=== PATIENT | female | born 1980 | race Caucasian/White ===

== ENCOUNTER → 2016-05-23 | Outpatient (CLI) | payer BC ==
[~2016-05-23] MED LIST: LORTAB 5/500 501 TAB PO; NORCO 325 MG-51 TAB PO; VALIUM 2MG T2 MG/TAB PO; ZYRTEC 10MG10 MG PO
== END ==
LOC: COL.RAD 11:15
DX: S83.511A Sprain of anterior cruciate ligament of right knee, initial encounter (principal); X58.XXXA Exposure to other specified factors, initial encounter

== ENCOUNTER → 2016-10-05 | Outpatient (CLI) | payer BC | LOC: COL.VAS 09:28 | DX: M79.661 Pain in right lower leg (principal); I87.1 Compression of vein; I82.441 Acute embolism and thrombosis of right tibial vein ==

== ENCOUNTER 2019-01-21 09:33 | Day surgery (SDC) | payer OTHER ==
[~2019-01-21] VITALS: Ht 162.6 cm; Wt 74.2 kg
[2019-01-21 10:03] VITALS: BP 125/88; PULSE 103; TEMP 97.3
[2019-01-21] MEDS ORDERED: SAVELLA100 MG PO (10:21)
[2019-01-21 11:40] VITALS: BP 124/85; PULSE 83; TEMP 97.3
--- NOTE | 2019-01-21 11:40 | NUR ---
1140- Pt to endo bay 3 post procedure post endoscopy. Pt ambulates with assist to chair. Monitors reapplied. VSS. Pt's mother at bedside.
[2019-01-21 11:55] VITALS: BP 117/89; PULSE 75
--- NOTE | 2019-01-21 11:55 | NUR ---
1155-Pt recieved muffin and water. pt tolerates well without n/v. Pt converses with mother and on phone.
[2019-01-21 12:10] VITALS: BP 117/85; PULSE 79
--- NOTE | 2019-01-21 12:10 | NUR ---
1210- Pt resting quietly in chair. VSS.
[2019-01-21 12:45] VITALS: BP 99/76; PULSE 82
--- NOTE | 2019-01-21 12:54 | NUR ---
1254-Pt notifies staff that she is dressed and ready to leave. Mom to down to pull car around for ride. pt d/c per wheelchair by nursing staff in care of mother.
--- NOTE | 2019-01-21 12:55 | NUR ---
1235-Dr. Payan to room. Procedure reviewed with pt. Pt denies question/concerns.
--- NOTE | 2019-01-21 12:56 | NUR ---
1245-D/C instructions reviewed with pt and pt's mother. Pt continues to deny questions/concerns. d/c instructions signed and copy given to Pt. IV d/c'd with cath intact. Pressure applied to site. Cotton ball and tape applied to site with coban used to secure dressing. Pt instructed to dress and notify staff when ready.
== END 2019-01-21 12:54 | disposition home or self-care (01) ==
LOC: SDCO 09:33
DX: R10.32 Left lower quadrant pain (principal); K59.00 Constipation, unspecified; Z88.0 Allergy status to penicillin
CPT/HCPCS: OP; J2250; J3010; J7030

== ENCOUNTER 2019-07-24 21:13 | Emergency (ER) | payer OTHER ==
[~2019-07-24] VITALS: Ht 162.6 cm; Wt 77.3 kg
[~2019-07-24 21:13] MED LIST changes: +SAVELLA100 MG PO
[2019-07-24 21:16] VITALS: TEMP 97.2
[2019-07-24 21:31] VITALS: BP 155/106; PULSE 86
[2019-07-24 21:56] LABS: ALANINE AMINOTRANSFERASE 18 U/L (4-34); ALBUMIN 4.8 gm/dL (3.5-5.0); ALKALINE PHOSPHATASE 63 U/L (50-136); ANION GAP 12 mmol/L (7-16); AST,SGOT 26 U/L (15-37); BASO # 0.1 (0.0-0.2); BASO % 0.6 % (0.0-2.0); BILIRUBIN,TOTAL 0.7 mg/dL (0.0-1.0); BLOOD UREA NITROGEN 14 mg/dL (7-17); CALCIUM 9.8 mg/dL (8.4-10.2); CARBON DIOXIDE 27 mmol/L (22-30); CHLORIDE 100 mmol/L (98-107); CREATININE, serum 0.76 (0.52-1.25); EOS # 0.2 (0.0-0.7); EOS % 1.5 % (0-4.0); GLUCOSE 108 mg/dL (74-106); GRAN # 8.6 (1.4-6.5); GRAN % 61.2 % (42.2-75.2); HEMATOCRIT 42.9 % (37.0-47.0); HEMOGLOBIN 14.8 g/dl (12.5-16.0); LYMPH # 4.4 (1.2-3.4); LYMPH % 31.2 % (20.0-51.0); MEAN CELL VOLUME 90 fl (80.0-100.0); MEAN CORPUSCULAR HEMOGLOBIN 31 pg (27.0-31.0); MEAN CORPUSCULAR HGB CONC 35 g/dl (33.0-37.0); MONO # 0.8 (0.1-0.6); MONO % 5.3 % (1.7-9.3); PLATELET COUNT 378 K/mm3 (130-400); POTASSIUM 3.5 mmol/L (3.4-5.0); RED BLOOD COUNT 4.76 M/mm3 (4.10-5.30); REDCELL DISTRIBUTION WIDTH-CV 12.4 % (11.5-14.5); SODIUM 140 mmol/L (137-145)
[2019-07-25 01:53] LABS: TROPONIN-I < 0.012 ng/mL (0.000-0.035)
== END 2019-07-24 23:15 | disposition home or self-care (01) ==
LOC: COL.ER 21:13
PROVIDERS: Emergency Medicine
DX: R07.89 Other chest pain (principal); M79.7 Fibromyalgia; Z88.0 Allergy status to penicillin; Z86.718 Personal history of other venous thrombosis and embolism
CPT/HCPCS: J1885

== ENCOUNTER 2021-04-11 11:58 | Emergency (ER) | payer OTHER ==
[~2021-04-11] VITALS: Ht 162.6 cm; Wt 78.6 kg
[2021-04-11 12:10] VITALS: TEMP 98.1
[2021-04-11 12:52] LABS: BASO # 0.1 K/mm3 (0.0-0.2); BASO % 0.9 % (0.0-2.0); EOS # 0.2 K/mm3 (0.0-0.7); EOS % 2.1 % (0-4.0); GRAN # 4.9 K/mm3 (1.4-6.5); GRAN % 55.7 % (42.2-75.2); HEMOGLOBIN 14.7 g/dl (12.5-16.0); LYMPH # 3.1 K/mm3 (1.2-3.4); LYMPH % 34.6 % (20.0-51.0); MEAN CELL VOLUME 88 fl (80.0-100.0); MEAN CORPUSCULAR HEMOGLOBIN 32 pg (27.0-31.0); MEAN CORPUSCULAR HGB CONC 36 g/dl (33.0-37.0); MEAN PLATELET VOLUME 9.2 fl (7.4-10.4); MONO # 0.6 K/mm3 (0.1-0.6); MONO % 6.2 % (1.7-9.3); PLATELET COUNT 431 K/mm3 (130-400); RED BLOOD COUNT 4.65 M/mm3 (4.10-5.30); REDCELL DISTRIBUTION WIDTH-CV 12.4 % (11.5-14.5)
[2021-04-11 13:19] LABS: ALANINE AMINOTRANSFERASE 11 U/L (0-55); ALBUMIN 4.4 gm/dL (3.5-5.0); ALKALINE PHOSPHATASE 60 U/L (40-150); ANION GAP 11 mmol/L (7-16); AST,SGOT 17 U/L (5-34); BILIRUBIN,TOTAL 0.6 mg/dL (0.2-1.2); BLOOD UREA NITROGEN 9 mg/dL (7-19); CALCIUM 9.7 mg/dL (8.4-10.2); CARBON DIOXIDE 22 mmol/L (22-29); CHLORIDE 105 mmol/L (98-107); CREATININE, serum 0.82 mg/dL (0.57-1.11); GLUCOSE 97 mg/dL (70-99); POTASSIUM 3.6 mmol/L (3.5-4.5); SODIUM 138 mmol/L (136-145); TOTAL PROTEIN 7.7 gm/dL (6.2-8.1)
[2021-04-11 13:25] LABS: TROPONIN-I < 0.010 ng/mL (0.00-0.033)
[2021-04-11 14:50] VITALS: BP 140/91; PULSE 79
== END 2021-04-11 15:09 | disposition home or self-care (01) ==
LOC: COL.ER 11:58
PROVIDERS: Student in an Organized Health Care Education/Training Program
DX: F41.1 Generalized anxiety disorder (principal); M54.2 Cervicalgia; M79.7 Fibromyalgia; I10 Essential (primary) hypertension; Z79.899 Other long term (current) drug therapy

== ENCOUNTER 2021-04-13 17:27 | Emergency (ER) | payer OTHER ==
[~2021-04-13] VITALS: Ht 162.6 cm; Wt 78.2 kg
[2021-04-13 17:41] VITALS: TEMP 98
[2021-04-13] MEDS ORDERED: HCTZ 25MG TAB25 MG PO (21:02)
[2021-04-13 21:33] VITALS: BP 131/97; PULSE 77
== END 2021-04-13 21:33 | disposition home or self-care (01) ==
LOC: COL.ER 17:27
DX: I10 Essential (primary) hypertension (principal)

== ENCOUNTER → 2021-04-19 | Outpatient (CLI) | payer OTHER ==
[~2021-04-19] MED LIST changes: +HCTZ 25MG TAB25 MG PO
== END ==
LOC: COL.RAD 14:02
DX: E07.9 Disorder of thyroid, unspecified (principal)

== ENCOUNTER → 2021-05-12 | Outpatient (CLI) | payer OTHER | LOC: COL.RAD 07:32 | DX: I10 Essential (primary) hypertension (principal); N83.202 Unspecified ovarian cyst, left side; Z97.5 Presence of (intrauterine) contraceptive device | CPT/HCPCS: Q9967 ==

== ENCOUNTER → 2022-01-13 | Outpatient (CLI) | payer BC | LOC: MC.RAD 07:15 | DX: Z12.31 Encounter for screening mammogram for malignant neoplasm of breast (principal) ==